=== PATIENT | female | born 1960 | race Caucasian/White ===

== ENCOUNTER → 2016-06-22 | Outpatient (CLI) | payer BC ==
[~2016-06-22] MED LIST: DIPH1TAB PO; EPP3/2 IM; NAPR1TAB9 PO
== END | disposition home or self-care (01) ==
LOC: C.LABSPEC 17:18
PROVIDERS: ATTEND Podiatrist Primary Podiatric Medicine
DX: R35.1 Nocturia (principal)

== ENCOUNTER 2016-12-23 20:43 | Emergency (ER) | payer BC ==
[~2016-12-23] VITALS: Ht 162.6 cm; Wt 89.9 kg
[2016-12-23 20:46] VITALS: Ht 162.6 cm; Wt 89.9 kg
[2016-12-23] MEDS ORDERED: DiphenhydrAMINE HCL 50 MG/ML VIAL IV STA (21:02)
[2016-12-23] MEDS ORDERED: DIPH1TAB PO (21:04)
[2016-12-23] MEDS ORDERED: NAPR1TAB9 PO (21:05)
[2016-12-23] MEDS ORDERED: DEXAMETHASONE SOD INJ 10 MG/ML VIAL IV ONE (21:15)
[2016-12-23] MEDS ORDERED: FAMOTIDINE IV INJ 20 MG in DEXTROSE 5% 100ML 100 ML IV SCH (21:15)
--- NOTE | 2016-12-23 21:16 | EMERGENCY ROOM VISIT NOTE ---
History Report prepared by Jennifer: Diann Daley Under the Supervision of: Dr. Starr Fraser D.O. First contact with patient: 20:59 Chief Complaint: ALLERGIC REACTION Stated Complaint: BITE BY SOMETHING, SWELLING TO FACE, ITCHING Nursing Triage Summary: Patient ambulatory to triage with a steady and upright gait, states "I got bit by something on my left upper lip about 40 minutes ago. I took a benadryl before coming. I have swelling in my face, especially on the left side. My throat feels tight and it's a little difficult to swallow. I have a rash and hives on my neck and chest." Patient noted to have bilateral facial edema, left greater than the right. Patient noted to have hives and redness to the face, neck and chest. History of Present Illness The patient is a 56 year old female who presents to the Emergency Room with complaints of a sudden allergic reaction that began 40 minutes ago. She currently rates her discomfort as a 6/10 in severity. The patient states that something stung her upper lip this evening. She states that she took 1 25 mg Benadryl prior to coming to the emergency department. The patient reports a burning pain to her face, swelling, erythema, and itchiness. She states that her eyes feel dry. The patient notes that it feels like something got stuck in her throat. She states that she has had reactions to bees in the past and previously carried an epi-pen, but states that it has . The patient denies any nausea or headache. She reports a history of arthritis, but denies being on any daily medications. Source of History: patient Onset: 40 minutes ago Position: other (global) Symptom Intensity: 6/10 Quality: other (allergic reaction) Timing: other (sudden) Associated Symptoms: No headache, No nausea Note: Associated Symptoms: burning pain, itchiness, eyes feel dry, something stuck in her throat, swelling and erythema to face. Review of Systems See HPI for pertinent positives & negatives. A total of 10 systems reviewed and were otherwise negative. Past Medical & Surgical Medical Problems: (1) Arthritis Family History No pertinent family history stated Social History Smoking Status: Never Smoker Marital Status: Housing Status: lives with significant other Occupation Status: employed Current/Historical Medications Scheduled Diphenhydramine Hcl (Benadryl Allergy), 25 MG PO DAILY Epinephrine (Epipen), 0.3 MG IM UD Naproxen (Aleve), 440 MG PO DAILY Allergies Coded Allergies: No Known Allergies (Unverified , 12/23/16) Physical Exam Vital Signs Date Time Temp Pulse Resp B/P (MAP) Pulse Ox O2 Delivery O2 Flow Rate FiO2 12/23/16 22:48 36.7 78 16 116/73 96 12/23/16 22:32 78 16 116/73 96 Room Air 12/23/16 20:58 88 12/23/16 20:46 94 Room Air 12/23/16 20:46 36.7 93 18 155/83 94 Room Air Physical Exam GENERAL: alert, well appearing, well nourished, no distress, non-toxic EYE EXAM: normal conjunctiva, PERRL and EOM's grossly intact. Mild edema to bilateral upper eyelids. OROPHARYNX: Left upper lip swelling extending into the left cheek. No swelling noted to the tongue or uvula, uvula is midline, no mucocutaneous lesions, no trismus, no facial hives no exudate, no erythema, lips, buccal mucosa, and tongue normal and mucous membranes are moist NECK: supple, no nuchal rigidity, no adenopathy, non-tender. No stridor. LUNGS: Clear to auscultation. Normal chest wall mechanics. No wheezes, rhonchi, or rales. HEART: no murmurs, S1 normal and S2 normal ABDOMEN: abdomen soft, non-tender, normo-active bowel sounds, no masses, no rebound or guarding. BACK: Back is symmetrical on inspection and there is no deformity, no midline tenderness, no CVA tenderness. SKIN: no rashes and no bruising. No additional erythema or diffuse urticaria, no other evidence of insect bites. UPPER EXTREMITIES: upper extremities are grossly normal. LOWER EXTREMITIES: No pitting edema. NEURO EXAM: Normal sensorium, cranial nerves II-XII grossly intact, normal speech, no gross weakness of arms, no gross weakness of legs. Medical Decision & Procedures Medications Administered Medications (Trade) Dose Ordered Sig/Sancho Route Start Time Stop Time Status Last Admin Dose Admin Diphenhydramine HCl (Benadryl Inj) 50 mg NOW STAT IV 12/23/16 21:02 12/23/16 21:05 DC 12/23/16 21:19 50 MG Famotidine 20 mg/ Dextrose 102 ml @ 200 mls/hr Q12H IV 12/23/16 21:15 12/23/16 23:07 DC 12/23/16 21:19 200 MLS/HR Dexamethasone Sodium Phosphate (Decadron Inj) 10 mg NOW ONCE IV 12/23/16 21:15 12/23/16 21:16 DC 12/23/16 21:19 10 MG Epinephrine (Epipen) 0.3 mg STK-MED ONCE .ROUTE 12/23/16 22:56 12/23/16 22:57 DC 12/23/16 23:02 0.3 MG ED Course 2056: The patient was evaluated in room A9B. A complete history and physical exam was performed. 2101: Ordered Benadryl Inj 50 mg IV. 2114: Ordered Decadron Inj 10 mg IV, Famotidine 20 mg/Dextrose 102 ml @ 200 mls/ hr IV. 2127: Dr. Taylor, [employer] Operator reevaluated the patient and the patient is doing well. 2145: Dr. Taylor, [employer] Operator reevaluated the patient and she continues to rest comfortably. 2214: I reevaluated the patient and she is looking much better. She still has some slight swelling, but is doing much better. I discussed all the exam findings with her and I discussed the treatment plan. She verbalized complete understanding and agreement. She is ready to go home shortly. Medical Decision Differential diagnosis: Etiologies such as allergic reaction, anaphylaxis, urticaria, Krishnamurthy-Virgil syndrome, toxic epidermal necrolysis, erythema multiforme, cellulitis, as well as others were entertained. Blood pressure screening: Patient was found to have a slightly elevated blood pressure due to circumstances. I do not believe that the patient requires hypertension monitoring. Medication Reconciliation: I attest that I have personally reviewed the patient' s current medication list. Pt with localized reaction to an insect bite that happened to occur to her face. Pt improved here with meds, monitored as a precaution. No difficulty breathing/swallowing. Discussed with pt sx to watch/return for, use of diphenhydramine, use of epipen, she verbalized understanding and was agreeable with plan. No evidence of airway involvement. No evidence of other sx of anaphylaxis. VS stable, pt with now other complaints. Tolerating po without difficulty prior to DC. Not hypoxic. Pt well appearing at time of dc. Impression Primary Impression: Insect bite Additional Impression: Allergic reaction Scribe Attestation The scribe's documentation has been prepared under my direction and personally reviewed by me in its entirety. I confirm that the note above accurately reflects all work, treatment, procedures, and medical decision making performed by me. Departure Information Dispostion Home / Self-Care Prescriptions Epinephrine (EPIPEN) 0.3 Mg/0.3 Ml Inj 0.3 MG IM UD for ALLERGIC REACTION, #1 BOX Prov: Starr Fraser DO 12/23/16 Referrals Arianna Puentes DO (PCP) Forms HOME CARE DOCUMENTATION FORM, IMPORTANT VISIT INFORMATION Patient Instructions My [facility] Additional Instructions Please take Benadryl every 6-8 hours for the next 2 days as a precaution. Please continue to monitor the area. If the swelling gets worse, you develop trouble swallowing, trouble breathing, feel the inside of your mouth or throat is swollen, develop worsening hives or redness on the body, develop chest pain, dizziness, or have any other new concerns, please return the emergency room. Please carry an EpiPen with you at all times. You may apply ice to the area intermittently, no longer than 20-30 minutes at a time. Problem Qualifiers Primary Impression: Insect bite Encounter type: initial encounter Qualified Codes: W57.XXXA - Bitten or stung by nonvenomous insect and other nonvenomous arthropods, initial encounter Additional Impression: Allergic reaction Encounter type: initial encounter Qualified Codes: T78.40XA - Allergy, unspecified, initial encounter
--- NOTE | 2016-12-23 21:25 | EMERGENCY ROOM VISIT NOTE ---
History First contact with patient: 21:01 Chief Complaint: ALLERGIC REACTION Stated Complaint: BITE BY SOMETHING, SWELLING TO FACE, ITCHING Nursing Triage Summary: Patient ambulatory to triage with a steady and upright gait, states "I got bit by something on my left upper lip about 40 minutes ago. I took a benadryl before coming. I have swelling in my face, especially on the left side. My throat feels tight and it's a little difficult to swallow. I have a rash and hives on my neck and chest." Patient noted to have bilateral facial edema, left greater than the right. Patient noted to have hives and redness to the face, neck and chest. History of Present Illness The patient is a 56 year old female who presents to the Emergency Room with complaints of an insect bite to the face. The patient states that she was stung on the face by an insect approximately 45 minutes ago and immediately took a dose of Benadryl. Her face began to swell up and she first noticed swelling over her lip and left cheek. She then began to feel the sensation of something being stuck in her throat when swallowing. She also states that it is slightly difficult to open her eyes due to the swelling. She states that it was initially itchy when she was first bit but now states that they itching has subsided. She denies any difficulty with breathing, headache, vision changes, shortness of breath, nausea, vomiting, chest pain, abdominal pain, or any other acute complaints. She states that she has a history of allergic reactions to insect bites but has never had one on her face. I will point she did have a prescription for an EpiPen but it and she did not refill her prescription. Review of Systems See HPI for pertinent positives and negatives. A total of ten systems were reviewed and were otherwise negative. Past Medical/Surgical History Medical Problems: (1) Arthritis Social History Smoking Status: Never Smoker Marital Status: Housing Status: lives with significant other Occupation Status: employed Current/Historical Medications Scheduled Diphenhydramine Hcl (Benadryl Allergy), 25 MG PO DAILY Naproxen (Aleve), 440 MG PO DAILY Allergies Coded Allergies: No Known Allergies (Unverified , 12/23/16) Physical Exam Vital Signs Date Time Temp Pulse Resp B/P (MAP) Pulse Ox O2 Delivery O2 Flow Rate FiO2 12/23/16 20:58 88 12/23/16 20:46 94 Room Air 12/23/16 20:46 36.7 93 18 155/83 94 Room Air Physical Exam GENERAL: Awake, alert, well-appearing, in no distress HENT: Normocephalic, atraumatic. Oropharynx unremarkable. No visible tongue swelling. Swelling of her upper lip and the left side of her face. Erythema over the left side of her face and neck with some additional redness over the right side of her neck. EYES: Normal conjunctiva. Sclera non-icteric. Both eyelids are swollen but the patient is able to open them fully and see. PERRL. EOMI. NECK: Supple. No nuchal rigidity. FROM. No JVD. RESPIRATORY: Clear to auscultation. CARDIAC: Regular rate, normal rhythm. Extremities warm and well perfused. Pulses equal. ABDOMEN: Soft, non-distended. No tenderness to palpation. No rebound or guarding. No masses. RECTAL: Deferred. MUSCULOSKELETAL: Chest examination reveals no tenderness. LOWER EXTREMITIES: Calves are equal size bilaterally and non-tender. No edema. No discoloration. NEURO: Normal sensorium. No sensory or motor deficits noted. SKIN: See above. Medical Decision & Procedures Medical Decision Patient is a 56 year old female that presents with an allergic reaction to an insect bite to the face Differential diagnosis includes local allergic reaction, anaphylactic shock, airway obstruction, and other etiologies were considered Medications: Benadryl, Decadron, and Zantac Departure Information Referrals Arianna Puentes DO (PCP) Patient Instructions My [facility]
[2016-12-23] MEDS ORDERED: EPP3/2 IM (22:38)
[2016-12-23 22:48] VITALS: BP 116/73; PULSE 78; TEMP 36.7; O2SAT 96
[2016-12-23] MEDS ORDERED: EPINEPHRINE ADULT AUTO-INJECT 0.3 MG SYR ONE (22:56)
== END 2016-12-23 22:49 | disposition home or self-care (01) ==
LOC: C.EDB 20:43 → C.EDA 22:49
DX: T78.40XA Allergy, unspecified, initial encounter (principal); W57.XXXA Bitten or stung by nonvenomous insect and other nonvenomous arthropods, initial encounter; M19.90 Unspecified osteoarthritis, unspecified site